=== PATIENT | male | born 1940 | race Caucasian/White ===

== ENCOUNTER → 2018-09-01 | Outpatient (REF) | payer MEDICARE | LOC: M LAB REF 15:23 | PROVIDERS: ATTEND Physician Assistant | DX: R10.33 Periumbilical pain (principal) ==

== ENCOUNTER 2018-10-03 13:52 | Emergency (ER) | payer MEDICARE ==
[~2018-10-03] VITALS: Ht 175.3 cm; Wt 81.8 kg
[2018-10-03] MEDS ORDERED: CENTTAB16 PO (14:25)
[2018-10-03] MEDS ORDERED: REST0.05 OP (14:25)
[2018-10-03] MEDS ORDERED: ASPI81TA26 PO (14:25)
[2018-10-03] MEDS ORDERED: CIDA500T2 PO (14:25)
[2018-10-03] MEDS ORDERED: OMEP-218 PO (14:25)
[2018-10-03] MEDS ORDERED: FISH1000 PO (14:25)
[2018-10-03] MEDS ORDERED: LISI10TA4 PO (14:25)
[2018-10-03] MEDS ORDERED: D200CAP2 PO (14:25)
[2018-10-03] MEDS ORDERED: CO Q10CA PO (14:25)
--- NOTE | 2018-10-03 15:24 | REP ---
Clinical: Mass. Technique: AP and lateral views of the right forearm. Findings: No acute fracture dislocation. Surrounding soft tissues are unremarkable. No subcutaneous emphysema or foreign body. Impression: Normal right forearm radiographs. Electronically Signed by Raffi Mendieta MD 10/03/2018 03:15 P
[2018-10-03 16:51] VITALS: BP 132/71
--- NOTE | 2018-10-04 08:37 | REP ---
Clinical: Forearm mass. Technique: Real time banuelos scale and color evaluation using linear high frequency transducer. Findings: Directed ultrasound examination of the right forearm overlying the palpable mass demonstrates a complex avascular fluid collection with septations measuring 2.6 x 0.8 x 2.2 cm. Impression: Correlation with history is required. Differential diagnosis includes hematoma and abscess based on associated findings and history. Electronically Signed by Raffi Mendieta MD 10/03/2018 03:18 P
--- NOTE | 2018-10-04 13:21 | ED PDOC ---
Post-Departure Follow-Up certified letter sent to pt re formal read of us of extremity. please find out w ho pcp is. if none - refer to [facility]. Additionally refer to general surgeon for recheck of presenting chief complaint. Jeimy Zarate MD Oct 04, 2018 13:21
== END 2018-10-03 16:51 | disposition home or self-care (01) ==
LOC: M ED 13:52
DX: R22.31 Localized swelling, mass and lump, right upper limb (principal); I10 Essential (primary) hypertension; Z79.899 Other long term (current) drug therapy; Z79.82 Long term (current) use of aspirin; Z88.5 Allergy status to narcotic agent

== ENCOUNTER 2018-10-13 15:45 | Emergency (ER) | payer MEDICARE ==
[~2018-10-13] VITALS: Ht 172.7 cm; Wt 81.8 kg
--- NOTE | 2018-10-13 17:59 | REP ---
RIGHT FIRST DIGIT: Four views of the right first digit are performed. Previously noted dislocation at the interphalangeal joint is reduced with no current evidence of dislocation. There is a possible tiny avulsion fracture at the base of the distal phalanx. Electronically Signed by Rafael Galarza MD 10/14/2018 01:53 P
[2018-10-13 18:07] VITALS: BP 153/85
--- NOTE | 2018-10-15 07:50 | ED PDOC ---
Post-Departure Follow-Up right fingers xray [place] [facility] [place] aware ossible fx. Martin to call pt to enourage Jeimy Lorenzo MD Oct 15, 2018 07:50
== END 2018-10-13 18:30 | disposition home or self-care (01) ==
LOC: M ED 15:45
DX: S63.124A Dislocation of interphalangeal joint of right thumb, initial encounter (principal); S63.621A Sprain of interphalangeal joint of right thumb, initial encounter; W01.198A Fall on same level from slipping, tripping and stumbling with subsequent striking against other object, initial encounter; Y92.89 Other specified places as the place of occurrence of the external cause; I10 Essential (primary) hypertension; K21.9 Gastro-esophageal reflux disease without esophagitis; Z85.46 Personal history of malignant neoplasm of prostate; Z88.5 Allergy status to narcotic agent; Z79.899 Other long term (current) drug therapy; Z79.82 Long term (current) use of aspirin

== ENCOUNTER → 2018-10-13 | Outpatient (CLI) | payer MEDICARE ==
[~2018-10-13] MED LIST: ASPI81TA26 PO; CENTTAB16 PO; CIDA500T2 PO; CO Q10CA PO; D200CAP2 PO; FISH1000 PO; LISI10TA4 PO; OMEP-218 PO; REST0.05 OP
--- NOTE | 2018-10-13 15:39 | REP ---
Right thumb series: Four views. History: Pain. Findings: Four views of the right thumb demonstrate dorsal dislocation at the IP joint of the thumb. There is associated soft-tissue swelling. No fractures seen. 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 Impression: Dorsal dislocation of the IP joint of the right thumb. No fracture is appreciated. Electronically Signed by Yang Reece MD 10/13/2018 03:31 P
== END ==
LOC: M WUC 15:12
PROVIDERS: ATTEND Physician Assistant
DX: S63.124A Dislocation of interphalangeal joint of right thumb, initial encounter (principal); X58.XXXA Exposure to other specified factors, initial encounter; Y92.9 Unspecified place or not applicable

== ENCOUNTER → 2020-09-25 | Outpatient (CLI) | payer MEDICARE ==
[~2020-09-25] MED LIST changes: +LISI10TA22 PO; -LISI10TA4 PO
[2020-09-25 16:55] LABS: BASO % 0.9 % (0.0-1.0); EOS # 0.1 10^3/uL (0.0-0.5); EOS % 3.2 % (0.0-3.0); HEMATOCRIT 46.3 % (42.0-52.0); HEMOGLOBIN 15.3 g/dl (13.5-17.5); LYMPH # 0.6 10^3/uL (1.5-5.0); MEAN CORPUSCULAR HEMOGLOBIN 29.9 pg (27.0-33.0); MEAN CORPUSCULAR VOLUME 90.6 fl (80.0-96.0); MONO # 0.6 10^3/uL (0.0-0.8); MONO % 13.5 % (2.0-8.0); NEUTROPHILS # 2.9 10^3/uL (1.5-8.5); NEUTROPHILS % 66.6 % (36.0-66.0); PLATELET COUNT, AUTOMATED 112 10^3/uL (150-450); RED BLOOD COUNT 5.11 10^6/uL (4.30-6.10); WHITE BLOOD COUNT 4.4 10^3/uL (4.0-10.0)
[2020-09-25 17:21] LABS: ALT/SGPT 83 U/L (12-78); BILIRUBIN,TOTAL 0.9 MG/DL (0.2-1.0); BLOOD UREA NITROGEN 16 MG/DL (7-18); C REACTIVE PROTEIN QUANTITATIV 7.52 MG/DL (0.00-0.30); CALCIUM LEVEL 9.2 MG/DL (8.8-10.2); CARBON DIOXIDE LEVEL 27 MEQ/L (21-32); CHLORIDE LEVEL 107 MEQ/L (98-107); CREATININE FOR GFR 0.91 MG/DL (0.70-1.30); GLOMERULAR FILTRATION RATE > 60.0 (>35); GLUCOSE, FASTING 102 MG/DL (70-100); POTASSIUM SERUM 4.2 MEQ/L (3.5-5.1); SODIUM LEVEL 140 MEQ/L (136-145); TOTAL PROTEIN 6.7 GM/DL (6.4-8.2)
[2020-09-25 17:36] LABS: ERYTHROCYTE SEDIMENTATION RATE 10 mm/hr (0-20)
== END ==
LOC: M WUC 13:05
PROVIDERS: ATTEND Nurse Practitioner Family
DX: M79.10 Myalgia, unspecified site (principal); A69.20 Lyme disease, unspecified

== ENCOUNTER 2024-10-30 16:15 | Emergency (ER) | payer MEDICARE ==
[~2024-10-30] VITALS: Ht 172.7 cm; Wt 94.6 kg
[~2024-10-30 16:15] MED LIST changes: +OMEP-173 PO; -OMEP-218 PO
[2024-10-30] MEDS: IPRATROPIUM 0.5 MG/ALBUTEROL 2.5 MG INH SOL UD 3 ML NEB ONE (17:58)
[2024-10-30 18:19] LABS: BASO # 0.0 10^3/uL (0.0-0.2); BASO % 0.5 % (0.0-1.0); EOS # 0.4 10^3/uL (0.0-0.5); EOS % 5.4 % (0.0-3.0); LYMPH # 1.2 10^3/uL (1.5-5.0); LYMPH % 19.1 % (24.0-44.0); MONO # 0.9 10^3/uL (0.0-0.8); MONO % 14.5 % (2.0-8.0); NEUTROPHILS # 3.8 10^3/uL (1.5-8.5); NEUTROPHILS % 58.6 % (36.0-66.0); PLATELET COUNT, AUTOMATED 110 10^3/uL (150-450)
[2024-10-30 18:38] LABS: ALT/SGPT 24.0 U/L (7.0-40); AST/SGOT 29.0 U/L (<34); CALCIUM LEVEL 8.7 MG/DL (8.3-10.6); CARBON DIOXIDE LEVEL 26.0 MMOL/L (20-31); CHLORIDE LEVEL 105.0 MMOL/L (98-107); CREATININE FOR GFR 1.06 MG/DL (0.70-1.30); GLOMERULAR FILTRATION RATE 68.8 (>35); POTASSIUM SERUM 3.9 MMOL/L (3.5-5.1); SODIUM LEVEL 143.0 MMOL/L (136-145)
[2024-10-30 18:40] LABS: THYROXINE (T4) 6.7 UG/DL (4.5-10.9)
[2024-10-30] MEDS ORDERED: VENTAER INH (19:28)
[2024-10-30 19:31] VITALS: BP 178/89; TEMP 98.5
[2024-10-30 19:45] VITALS: O2SAT 94
[2024-10-30] MEDS: ALBUTEROL 90 MCG/ACT 8 GM HFA INHALER INH ONE (19:56)
== END 2024-10-30 20:00 | disposition home or self-care (01) ==
LOC: M ED 16:15
DX: J20.9 Acute bronchitis, unspecified (principal); J11.1 Influenza due to unidentified influenza virus with other respiratory manifestations; I10 Essential (primary) hypertension; K21.9 Gastro-esophageal reflux disease without esophagitis; Z85.46 Personal history of malignant neoplasm of prostate; Z79.82 Long term (current) use of aspirin; Z79.899 Other long term (current) drug therapy; Z88.5 Allergy status to narcotic agent
CPT/HCPCS: 70450; 71045; 80048; 80076; 83605; 83880; 84436; 84443; 85025; 87040; 87486; 87581; 87633; 87798; 93005; 93041; 94640; 94664; 94760; 96374; 99285; J2919

== ENCOUNTER → 2024-12-06 | Outpatient (CLI) | payer MEDICARE ==
[~2024-12-06] MED LIST changes: +VENTAER INH
== END ==
LOC: M WUC 11:48
PROVIDERS: ATTEND Physician Assistant
DX: M51.360 Other intervertebral disc degeneration, lumbar region with discogenic back pain only (principal); M43.16 Spondylolisthesis, lumbar region

== ENCOUNTER → 2024-12-26 | Outpatient (CLI) | payer MEDICARE | LOC: M WUC 12:11 | PROVIDERS: ATTEND Student in an Organized Health Care Education/Training Program | DX: S20.212A Contusion of left front wall of thorax, initial encounter (principal); R91.8 Other nonspecific abnormal finding of lung field; X58.XXXA Exposure to other specified factors, initial encounter; Y92.9 Unspecified place or not applicable; Y93.9 Activity, unspecified; Y99.9 Unspecified external cause status ==